=== PATIENT | female | born 1970 | race Caucasian/White ===

== ENCOUNTER 2024-07-27 06:31 | Outpatient (CLI) | payer BC ==
[2024-07-27] MEDS ORDERED: LIDOcaine 1%/PF 5ML 10 MG/ML VIAL ONE (06:38)
[2024-07-27] MEDS ORDERED: iohexol 300 MG/1 ML 50ml polymer ONE (06:38)
[2024-07-27] MEDS ORDERED: LIDOcaine 1% 30ml preserv. free vial ONE (06:39)
[2024-07-27] MEDS ORDERED: GADOTERATE MEGLUMINE 7.5 MMOL/15 ML VIAL IV ONE (06:39)
== END 2024-07-27 23:59 | disposition home or self-care (01) ==
LOC: RAD 06:31
PROVIDERS: ATTEND Family Medicine Sports Medicine
DX: S73.191A Other sprain of right hip, initial encounter (principal); M25.551 Pain in right hip; M70.71 Other bursitis of hip, right hip; M76.891 Other specified enthesopathies of right lower limb, excluding foot; Z79.891 Long term (current) use of opiate analgesic; Z87.891 Personal history of nicotine dependence; Z79.899 Other long term (current) drug therapy; Z90.89 Acquired absence of other organs; Z98.890 Other specified postprocedural states; Z83.3 Family history of diabetes mellitus; X58.XXXA Exposure to other specified factors, initial encounter; Y93.89 Activity, other specified; Y92.89 Other specified places as the place of occurrence of the external cause; Y99.8 Other external cause status
CPT/HCPCS: 27093; 73722; 77002; A9575; J3490; Q9967; 73525